=== PATIENT | male | born 1995 | race Caucasian/White ===

== ENCOUNTER 2024-04-03 12:12 | Emergency (ER) | payer SELFPAY ==
[2024-04-03] VITALS (11 sets, daily range): BP systolic 116–122; BP diastolic 55–73; PULSE 66–79; RESP 16–26; TEMP 37.4; O2SAT 98–100; BMI 21.9
--- NOTE | 2024-04-03 12:26 | DI.RAD.S_ITS ---
PROCEDURE: XR CHEST 1V INDICATIONS: trauma TECHNIQUE: One view of the chest was acquired. COMPARISON: [facility], CT, CT TRAUMA CHEST ABDOMEN PELVIS, 04/03/2024, 12:44. FINDINGS: Surgical changes and devices: None. Lungs and pleura: Lungs are clear. No pleural effusions or pneumothorax. Mediastinum: Mediastinal contours appear normal. Heart size is normal. Bones and chest wall: There is a comminuted fracture of the right mid clavicle, with overlapping of fragments. No displaced rib fractures can be seen. No suspicious bony lesions. Overlying soft tissues appear unremarkable. IMPRESSION: Comminuted right clavicle fracture, with overlapping of fragments. No displaced rib fracture or pneumothorax can be seen. Dictated by: Denny Prasad M.D. on 04/03/2024 at 12:15 Approved by: Denny Prasad M.D. on 04/03/2024 at 12:17
--- NOTE | 2024-04-03 12:26 | DI.CT.S_ITS ---
PROCEDURE: CT TRAUMA CHEST ABDOMEN PELVIS INDICATIONS: trauma TECHNIQUE: After the administration of intravenous contrast, 5 mm thick sections acquired from the lung apices to the symphysis. 2.5 mm thick coronal and sagittal reformats were acquired. Additional 7 mm thick coronal maximum intensity projection (MIP) reformats acquired through the lungs. Optional 10-minute delayed imaging may be performed from the kidneys to the bladder. For radiation dose reduction, the following was used: automated exposure control, adjustment of mA and/or kV according to patient size. COMPARISON: [facility], CR, XR SHOULDER RT MIN 2V, 04/03/2024, 12:47. FINDINGS: Image quality: Diagnostic. CHEST: Lower Neck: No enlarged lymph nodes. Thyroid: 2.4 cm isthmus thyroid nodule. Axillae: No enlarged lymph nodes. Chest Wall: No subcutaneous gas. Lungs and Pleura: No pulmonary contusions or lacerations. No acute airspace opacities. No pneumothorax or hemothorax. Mediastinum: No mediastinal hematomas. Heart size is normal. No pericardial effusion. Thoracic aorta and pulmonary arteries demonstrate normal size and enhancement. No mediastinal or hilar adenopathy. Esophagus is normal in caliber. No hiatal hernia. ABDOMEN: Liver: No lacerations. Gallbladder: No radiopaque gallstones or wall thickening. Biliary ducts: No biliary dilation. Pancreas: Homogenous enhancement. Spleen: Homogenous enhancement without laceration or hematoma. Adrenal Glands: Symmetric enhancement. Kidneys and Ureters: Symmetric enhancement. No hydronephrosis. No solid mass. No complex renal cystic lesion which requires follow up. Stomach and Bowel: Normal colonic caliber, without significant wall thickening. Peritoneum: No abnormal intraperitoneal fluid. No free air. Ventral Wall: No hernia. Abdominal Nodes: No retroperitoneal or mesenteric adenopathy by size criteria. Vessels: Aorta and inferior vena cava are normal in size. PELVIS: Pelvic Organs: Unremarkable. Bladder: Normal thickness. Pelvic Nodes: No enlarged lymph nodes. Miscellaneous: No inguinal hernias are seen. Bones: Pelvic ring and hip joints appear intact. No displaced rib fractures. Comminuted displaced right clavicular fracture. IMPRESSION: 1. Comminuted, displaced right clavicular fracture. 2. No other significant sequelae of acute trauma in the chest, abdomen, and pelvis. 3. There is a 2.4 cm isthmus thyroid nodule. Comment: Recommend nonemergent thyroid ultrasound to further evaluate the thyroid nodule. Dictated by: Ryan Huang M.D. on 04/03/2024 at 13:16 Approved by: Ryan Huang M.D. on 04/03/2024 at 13:21
--- NOTE | 2024-04-03 12:27 | DI.CT.S_ITS ---
PROCEDURE: CT HEAD/BRAIN WO CON INDICATIONS: Trauma TECHNIQUE: Noncontrast 4.5 mm thick angled axial sections acquired from the foramen magnum to the vertex, with coronal and sagittal reformats. For radiation dose reduction, the following was used: automated exposure control, adjustment of mA and/or kV according to patient size. COMPARISON: None. FINDINGS: Image quality: Diagnostic. CSF spaces: Basal cisterns are patent. No extra-axial fluid collections. Ventricles are normal in size and shape. Brain: No midline shift. No intracranial masses or hemorrhage. Coughlin-white matter interface is normal. Skull and face: Calvarium and visualized facial bones are intact, without suspicious lesions. Sinuses: Visualized sinuses and mastoids are clear. IMPRESSION: No acute intracranial pathology. Dictated by: Ryan Huang M.D. on 04/03/2024 at 13:13 Approved by: Ryan Huang M.D. on 04/03/2024 at 13:15
--- NOTE | 2024-04-03 12:27 | DI.RAD.S_ITS ---
PROCEDURE: XR SHOULDER RT MIN 2V INDICATIONS: pain TECHNIQUE: 2 views of the shoulder were acquired. COMPARISON: None. FINDINGS: Bones: Comminuted displaced fracture of the distal 3rd of the right clavicle. No other fractures or dislocations. No suspicious bony lesions. Visualized ribs appear intact. Soft tissues: No suspicious soft tissue calcifications. IMPRESSION: Comminuted, displaced right clavicular fracture Dictated by: Ryan Huang M.D. on 04/03/2024 at 14:28 Approved by: Ryan Huang M.D. on 04/03/2024 at 14:29
--- NOTE | 2024-04-03 12:27 | DI.CT.S_ITS ---
PROCEDURE: CT CERVICAL SPINE WO CON INDICATIONS: Trauma TECHNIQUE: Noncontrast 3 mm thick sections acquired from the skull base to the T4 level. Sagittal and coronal reformats were then constructed. For radiation dose reduction, the following was used: automated exposure control, adjustment of mA and/or kV according to patient size. COMPARISON: None. FINDINGS: Image quality: Excellent. Bones: No fractures or dislocations. Visualized superior ribs are intact. Soft tissues: Prevertebral soft tissues are normal in thickness. No paravertebral hematomas. No apical pneumothoraces. IMPRESSION: No acute cervical fracture or dislocation Dictated by: Ryan Huang M.D. on 04/03/2024 at 13:15 Approved by: Ryan Huang M.D. on 04/03/2024 at 13:16
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
[2024-04-03] MEDS: TET,DIPH,PERTUSS(ACELL),VAC/PF 0.5 ML SYRINGE IM (12:38)
[2024-04-03] MEDS: MORPHINE 2 MG/ML INJ IV (12:38)
--- NOTE | 2024-04-03 12:38 | EKG_ITS ---
[address] [address] [place] [address] Test Date: 2024-04-03 Pat Name: Ant Kwon Department: [facility] Room: Gender: Male Triage Assistant: NYASIA : 1995 Requested By: Order Number: [id number] Reading MD: Arie Herrera MD Measurements Intervals [place] Rate: 68 P: 92 OR: 132 QRS: 109 QRSD: 102 T: 128 QT: 398 QTc: 423 Interpretive Statements Suspect arm lead reversal, interpretation assumes no reversal Normal sinus rhythm Rightward axis Nonspecific ST and T wave abnormality NO PRIOR TRACING Electronically Signed On 04-03-2024 13:48:29 PDT by Arie Herrera MD
--- NOTE | 2024-04-03 13:15 | EKG_ITS ---
[address] [address] [address], [place] [address] Test Date: 2024-04-03 Pat Name: Ant Kwon Department: Room: Gender: Male Platform Inspector: ROMMEL : 1995 Requested By: Order Number: [id number] Reading MD: Arie Herrera MD Measurements Intervals [place] Rate: 71 P: 83 NV: 134 QRS: 66 QRSD: 98 T: 43 QT: 390 QTc: 423 Interpretive Statements Normal sinus rhythm Electronically Signed On 04-03-2024 16:43:40 PDT by Arie Herrera MD
[2024-04-03 13:16] LABS: Add Manual Diff / Slide Review NO; Basophils Absolute Auto 0 /uL (0-100); Basophils Percent Auto 0.2 % (0-2); Eosinophils Absolute Auto 0 /uL (0-450); Eosinophils Percent Auto 0.4 % (2-4); Hematocrit 36.2 % (41-53); Hemoglobin 12.3 g/dL (13.5-17.5); Lymphocytes Absolute Auto 1100 /uL (1100-4500); Lymphocytes Percent Auto 9.4 % (25-40); Mean Corpuscular Volume 88.1 fL (80-100); Monocytes Absolute Auto 1000 /uL (0-900); Monocytes Percent Auto 8.1 % (3-14); Neutrophils Absolute Auto 9700 /uL (1500-7000); Neutrophils Percent Auto 81.9 % (50-75); Platelet Count 222 X10^3/uL (150-400); Red Blood Cell Count 4.11 X10^6/uL (4.5-5.9); Red Cell Distribution Width 13.7 % (11.6-14.8); White Blood Cell Count 11.8 X10^3/uL (4.5-11.0)
[2024-04-03 13:26] LABS: Prothrombin Time 11.8 SECONDS (9.4-12.5)
[2024-04-03 13:28] LABS: PTT Partial Thromboplastin Tim 30 SECONDS (25.1-36.5)
[2024-04-03 13:30] LABS: Alanine Aminotransferase 18 IU/L (<50); Albumin 4.1 g/dL (3.5-5.0); Alkaline Phosphatase 71 U/L (38-126); Aspartate Aminotransferase 25 IU/L (17-59); BUN Creatinine Ratio 16.1 (6-22); Bilirubin Total 0.4 mg/dL (0.2-1.3); Blood Urea Nitrogen 15 mg/dL (9-20); Calcium 8.7 mg/dL (8.4-10.2); Carbon Dioxide 23 mmol/L (22-32); Chloride 106 mmol/L (98-107); Estimated Glomerular Filt Rate > 60 mL/min (>60); Ethanol (ETOH) < 10 mg/dL; Globulin 2.1 g/dL (1.7-4.1); Glucose 117 mg/dL (70-100); HEMOLYSIS < 15 (0-50); Lactate (Lactic Acid) 1.3 mmol/L (0.7-2.1); Lipase 90 U/L (23-300); Sodium 136 mmol/L (137-145); Total Protein 6.2 g/dL (6.3-8.2)
[2024-04-03 13:42] LABS: UR Morphine/Opiate cutoff 300 Positive (Negative); Ur Creatinine Normal (Normal); Ur Specific Gravity Normal (Normal); Urine Amphetamines Negative (Negative); Urine Barbiturates Negative (Negative); Urine Benzodiazepines Negative (Negative); Urine Cocaine Negative (Negative); Urine MDMA Negative (Negative); Urine Methadone Negative (Negative); Urine Methamphetamines Negative (Negative); Urine Oxycodone Negative (Negative); Urine Phencyclidine Negative (Negative); Urine Tetrahydrocannabinol Negative (Negative); Urine Tricyclic Antidepressant Negative (Negative); Urine pH Normal (Normal)
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
[2024-04-03] MEDS: ONDANSETRON 4 MG ODT SL (15:16)
[2024-04-03] MEDS: KETOROLAC 30 MG/ML VIAL 15 MG IM (15:18)
== END 2024-04-03 15:45 | disposition home or self-care (01) ==
PROVIDERS: Emergency Provider Emergency Medicine
DX: S42.001A Fracture of unspecified part of right clavicle, initial encounter for closed fracture (principal); S60.511A Abrasion of right hand, initial encounter; S40.211A Abrasion of right shoulder, initial encounter; S29.9XXA Unspecified injury of thorax, initial encounter; S09.90XA Unspecified injury of head, initial encounter; V29.99XA Rider (driver) (passenger) of other motorcycle injured in unspecified traffic accident, initial encounter; Z23 Encounter for immunization
CPT/HCPCS: 70450; 71045; 71275; 72125; 73030; 74177; 80053; 80305; 80320; 83605; 83690; 85025; 85610; 85730; 90471; 93005; 96372; 96374; 99284; 90715; J1885; J2270; Q9967